=== PATIENT | male | born 1980 | race Hispanic/Latino ===

== ENCOUNTER 2023-12-26 15:19 | Emergency (ER) | payer OTHER ==
[~2023-12-26] VITALS: Ht 170.2 cm; Wt 90.7 kg
[2023-12-26] MEDS ORDERED: KEFLEX500 MG PO (15:44)
[2023-12-26] MEDS ORDERED: LIDOcaine HCl 1% (Local Anesth.) 20 ML VIAL STI STA (15:44)
[2023-12-26] MEDS ORDERED: NEOMYCIN-BACITRACIN-POLYMYXIN 0.5 GM/PAK PAK TOP ONE (15:45)
[2023-12-26] MEDS ORDERED: POVIDONE IODINE 0.5 OZ/BTL TOP ONE (15:45)
== END 2023-12-26 16:33 | disposition home or self-care (01) | DRG 605 ==
LOC: ED 15:19
PROC: 0HQEXZZ Repair Left Lower Arm Skin, External Approach (ICD-10-PCS; principal; 2023-12-26)
DX: S51.812A Laceration without foreign body of left forearm, initial encounter (principal); W26.0XXA Contact with knife, initial encounter; Y93.89 Activity, other specified; Y99.0 Civilian activity done for income or pay

== ENCOUNTER 2024-01-09 19:23 | Emergency (ER) | payer OTHER ==
[~2024-01-09] VITALS: Ht 170.2 cm; Wt 97.5 kg
[~2024-01-09 19:23] MED LIST: KEFLEX500 MG PO
[2024-01-09] MEDS ORDERED: Diph, Acellular Pertussis, Tet 0.5 ML/VIAL (Tdap) SDV IM ONE ×2 (19:45)
[2024-01-09 20:12] VITALS: BP 164/107
== END 2024-01-09 20:17 | disposition home or self-care (01) | DRG 950 ==
LOC: ED 19:23
DX: S61.512D Laceration without foreign body of left wrist, subsequent encounter (principal); X58.XXXD Exposure to other specified factors, subsequent encounter